=== PATIENT | female | born 1985 | race African-American/Black ===

== ENCOUNTER 2019-04-11 10:43 | Emergency (ER) | payer OTHER, SELFPAY ==
[2019-04-11 10:56] VITALS: BP 120/78; PULSE 92; RESP 16; TEMP 37.8; O2SAT 100
--- NOTE | 2019-04-11 11:20 | ED.URI ---
HPI - URI/Sore Throat General Chief Complaint: Upper Respiratory Infection Stated Complaint: Fever/Cough/Sore Throat/Chest congestion Time Seen by Provider: 04/11/19 11:20 Source: patient and RN notes reviewed Mode of arrival: ambulatory Limitations: no limitations History of Present Illness HPI Narrative: 33-year-old female who presents to [facility] care with complaints of cough, fevers, chest hurts with cough, some bleeding from her right nare when she coughs real hard since Monday.Daughter diagnosed with influenza B on Monday so known exposure. Patient states that she normally smokes 1ppd of cigarettes but has been unable to smoke since Monday.Patient states that she has had fevers up to 102F, has been taking Tylenol for her fever and chills and generalized discomfort. MD elicited complaint: fever, cough and rhinorrhea Pertinent past history: other (tobacco abuse) Onset (ago): day(s) (3) Consistency: progressively worsening Severity: moderate Description of mucous: clear and bloody Able to tolerate fluids by mouth: Yes Exacerbating factors: exertion and deep breaths Relieving factors: nothing Context: sick contacts Associated symptoms: fever, chills, myalgias, nasal congestion and cough Treatments prior to arrival: acetaminophen Related Data Allergies Allergy/AdvReac Type Severity Reaction Status Date / Time No Known Allergies Allergy Verified 04/11/19 11:01 Review of Systems Review of Systems: Narrative: CONSTITUTIONAL: Positive fever, chills, or sweats. EYES: Denies visual changes, redness, or discharge. ENT: Positive rhinorrhea, congestion,no sore throat, or otalgia,some bleeding right nare stated CARDIOVASCULAR:States chest pain with cough only denies any palpitations, or edema. RESPIRATORY: Positive cough denies dyspnea. GASTROINTESTINAL: Denies abdominal pain, nausea, vomiting, or diarrhea. GENITOURINARY: Denies dysuria or hematuria. SKIN: Denies rash or itching. MUSCULOSKELETAL: Denies back pain, joint pain, body aches NEUROLOGIC: Denies headache, numbness, or weakness. PSYCHIATRIC: Denies anxiety or depression. All systems reviewed & are unremarkable except as noted in HPI and below PMFSH Past Medical History Medical History (Updated 04/11/19 @ 11:45 by Kamila Moon NP) No significant medical problems Social History Social History (Updated 02/20/20 @ 11:45 by Kamila Moon NP) Smoking status: Current every day smoker Living arrangements: with family Gender identity (if verbalized by the patient): Female Comments At time of signature, agree with nursing past medical, social history. There is no relevant family history pertinent to the presenting complaint Exam Narrative: Exam Narrative: GENERAL: Well-appearing, well-nourished, and in no acute distress. HEAD: Normocephalic, atraumatic. EYES: PERRLA and EOMI. ENT: Nares red, clear rhinorrhea reports blood from right nare with no active bleeding noted presently, no epistaxis. Mucous membranes moist.TM's normal with good light reflex, throat red with no lesions or exudate no tonsil enlargement. NECK: Supple. no lymphadenopathy CHEST: Clear to auscultation. No respiratory distress. cough harsh with no acute dyspnea SAO2 100% on room air, states some chest discomfort anteriorly with cough. HEART: Regular rate and rhythm. No murmur heard. Normal peripheral pulses. ABDOMEN: Soft, nontender, nondistended, normal active bowel sounds. EXTREMITIES: Normal range of motion. No edema. SKIN: Warm, dry, no rash. NEURO: No focal deficits. Alert and oriented x3. Course Vital Signs Vital signs: Vital Signs Temperature 37.8 C H 04/11/19 10:56 Pulse Rate 92 04/11/19 10:56 Respiratory Rate 16 04/11/19 10:56 Blood Pressure 120/78 04/11/19 10:56 Pulse Oximetry 100 04/11/19 10:56 Temperature 37.8 C H 04/11/19 10:56 Pulse Rate 92 04/11/19 10:56 Respiratory Rate 16 04/11/19 10:56 Blood Pressure 120/78 04/11/19 10:56 Pulse Oximetry 1
== END 2019-04-11 11:40 | disposition home or self-care (01) ==
PROVIDERS: Emergency Provider Registered Nurse
DX: J10.1 Influenza due to other identified influenza virus with other respiratory manifestations (principal); R05 Cough; F17.200 Nicotine dependence, unspecified, uncomplicated
CPT/HCPCS: 87804; 99213; G0463

== ENCOUNTER 2021-11-24 12:29 | Emergency (ER) | payer OTHER, SELFPAY ==
--- NOTE | ~2021-11-24 | XR_ITS ---
XR ankle RT min 3V 11/24/2021 13:08 Indication: Twisting injury to the right ankle Procedure: 4 views right ankle Comparison: No prior studies for comparison. Findings: There is a nondisplaced oblique distal fibular fracture. Ankle mortise intact. Moderate lat eral soft tissue swelling. No foreign bodies. Impression: 1: Nondisplaced oblique distal fibular fracture. Reviewed, dictated and finalized at location B. Impression: 1: Nondisplaced oblique distal fibular fracture.
[2021-11-24 12:40] VITALS: BP 125/88; PULSE 93; RESP 18; TEMP 36.9; O2SAT 98
--- NOTE | 2021-11-24 12:50 | ED.LOWEXIN ---
HPI - Extremity Injury (Lower) General Chief Complaint: Extremity Injury, Lower Stated Complaint: right foot Pain Time Seen by Provider: 11/24/21 12:50 Source: patient and RN notes reviewed Mode of arrival: ambulatory Limitations: no limitations History of Present Illness HPI Narrative: 36-year-old female presents with concern for right ankle injury. She reports this morning she was walking her dog when she fell on wet grass twisting her ankle. She reports pain, swelling, pain with weightbearing. She denies open skin, lacerations abrasion. Denies redness or warmth. MD complaint: ankle injury Related Data Home Medications Medication Instructions Recorded Confirmed No Home Medications 11/24/21 11/24/21 Allergies Allergy/AdvReac Type Severity Reaction Status Date / Time No Known Allergies Allergy Verified 11/24/21 12:34 Review of Systems Review of Systems: CONSTITUTIONAL: Denies malaise, chills, sweats, or fever. SKIN: Denies rash or itching, open skin, laceration, abrasion, redness, warmth MUSCULOSKELETAL: Reports right ankle pain and swelling NEUROLOGIC: Denies numbness, weakness All systems reviewed & are unremarkable except as noted in HPI and below PMFSH Past Medical History Medical History (Updated 11/24/21 @ 13:35 by Kenyetta Ernst NP) No significant medical problems Social History Social History (Updated 04/11/19 @ 11:45 by Kamila Moon NP) Smoking status: Current every day smoker Gender identity (if verbalized by the patient): Female Comments At time of signature, agree with nursing past medical, surgical, social and family history. There is no relevant family history pertinent to the presenting complaint Exam Narrative: GENERAL: Well-appearing, well-nourished, and in no acute distress. HEAD: Normocephalic, atraumatic. EYES: PERRLA, conjunctivae clear NECK: Supple. CHEST: Speaks in full sentences. No respiratory distress. HEART: Regular rate and rhythm. Normal and equal peripheral pulses. EXTREMITIES: Right foot, ankle, digits have normal strength and sensation, grossly normal range of motion. Mild lateral edema without erythema, ecchymosis. 5/5 strength with digit flexion and extension. Normal sensation with sensitivity to light touch and pain. Lateral ankle tenderness. No open wounds, no skin tenting, no devitalized tissue or atrophy, no trophic changes, no obvious deformity, alignment normal, nearby joints and structures intact. Distal pulses palpable and equal bilaterally, skin warm, dry, pink. Capillary refill less than 3 seconds. SKIN: Warm, dry, no rash. NEURO: Alert and oriented x3. PSYCH: Normal mood and affect Course Course Emergency Course: Patient is aware of diagnosis, understands and agrees to treatment plan. Anticipatory guidance given. Patient agrees to follow-up as directed and is aware of reasons to seek care at the emergency department. Portions of this record may have been created with voice recognition software Level of Care: Express Care Visit Vital Signs Vital signs: Vital Signs Temperature 98.5 F 11/24/21 12:40 Pulse Rate 93 11/24/21 12:40 Respiratory Rate 18 11/24/21 12:40 Blood Pressure 125/88 11/24/21 12:40 Pulse Oximetry 98 11/24/21 12:40 Oxygen Delivery Room Air 11/24/21 12:40 Temperature 98.5 F 11/24/21 12:40 Pulse Rate 93 11/24/21 12:40 Respiratory Rate 18 11/24/21 12:40 Blood Pressure 125/88 11/24/21 12:40 Pulse Oximetry 98 11/24/21 12:40 Oxygen Delivery Room Air 11/24/21 12:40 Reviewed. Procedures Orthopedic Splinting/Casting Injury #1: Splinting/Casting Date: 11/24/21 Splinting/Casting Time: 13:39 Side: right Lower Extremity Injury Location: ankle Splint: customized in ED OCL: short leg Pre-Procedure Neuro Vascular Exam: normal Post-Procedure Neuro Vascular Exam: normal Other Orthopedic Equipment: crutches MDM - Extremity Inju
== END 2021-11-24 14:15 | disposition home or self-care (01) ==
PROVIDERS: Emergency Provider Nurse Practitioner
DX: S82.831A Other fracture of upper and lower end of right fibula, initial encounter for closed fracture (principal); W19.XXXA Unspecified fall, initial encounter; Y93.K1 Activity, walking an animal; F17.200 Nicotine dependence, unspecified, uncomplicated
CPT/HCPCS: 29505; 73610; 99214; G0463